=== PATIENT | male | born 1965 | race Caucasian/White ===

== ENCOUNTER 2016-06-22 09:49 | Inpatient (IN) | payer MEDICAID ==
[~2016-06-22] VITALS: Ht 190.5 cm; Wt 112.7 kg
[2016-06-22] VITALS (25 sets, daily range): BP systolic 99–170; BP diastolic 51–109; BMI 31.1
[~2016-06-22 09:49] MED LIST: ALDACTONE25 MG PO; BAYER CHEWABLE81 MG PO; COREG12.5 MG; COREG12.5 MG PO; COZAAR25 MG PO; LASIX80 MG PO; PROVENTIL HFA6.7 GM INH; SYMBICORT 16010.2 GM INH
[2016-06-22 10:27] LABS: BASOPHILS 0.7 % (0.0-2.0); EOSINOPHILS 2.8 % (0-7); HEMATOCRIT 46.1 % (42.0-54.0); HEMOGLOBIN 14.7 g/dL (13.5-17.5); IMMATURE GRANULOCYTES 0.6 % (0-5); LYMPHOCYTES 17.4 % (15-50); MCH 28.5 pg (26.0-34.0); MCHC 31.9 g/dL (31.0-37.0); MCV 89.3 fL (80.0-100.0); MEAN PLATELET VOLUME 10.8 fL (7.4-10.4); MONOCYTES 5.3 % (2-11); NEUTROPHILS 73.2 % (40-80); RBC 5.16 10x6/uL (4.20-6.10); RDW 15.5 % (11.5-14.5)
[2016-06-22 10:36] LABS: ALBUMIN 3.4 g/dL (3.4-5.0); ALKALINE PHOSPHATASE 85 U/L (46-116); ALT (SGPT) 36 U/L (10-68); CALC OSMOLALITY 277 mosm/kg (275-300); CALCIUM 8.8 mg/dL (8.5-10.1); CARBON DIOXIDE 23.3 mmol/L (21.0-32.0); CHLORIDE - SERUM 103 mmol/L (98-107); CREATININE - SERUM 1.4 mg/dL (0.6-1.3); GLUCOSE 127 mg/dL (74-106); PROTEIN - SERUM 7.5 g/dL (6.4-8.2); SODIUM 136 mmol/L (136-145); UREA NITROGEN 24 mg/dL (7-18); eGFR NON AFRICAN AMERICAN 56 mL/min (90-120)
[2016-06-22 10:37] LABS: PLATELET COUNT 249 10x3/uL (130-400)
[2016-06-22 10:56] LABS: CHOL - HDL RATIO 5.7 ratio (2.3-4.9); CHOLESTEROL, TOTAL 187 mg/dL (0-200); CKMB 2.8 U/L (0.0-3.6); CREATINE KINASE 113 UL (21-232); HDL CHOLESTEROL 33 mg/dL (32-96); LDL CHOLESTEROL 97 mg/dL (0-100); LDL-HDL RATIO 2.9 ratio (1.5-3.5); TRIGLYCERIDE 288 mg/dL (30-200)
[2016-06-22 10:57] LABS: TROPONIN-I 0.074 ng/mL (0.000-0.060)
--- NOTE | 2016-06-22 13:28 | NUR ---
PATIENT ARRIVED TO ROOM VIA WHEELCHAIR. ADMISSION STARTED.
[2016-06-22] MEDS ORDERED: ACCUPRIL10 MG PO (13:38)
--- NOTE | 2016-06-22 13:55 | NUR ---
SPOKE WITH DR VERGARA VIA PHONE. OK FOR PATIENT TO HAVE REGULAR DIET AND NEW MED ORDERS RECEIVED.
--- NOTE | 2016-06-22 16:46 | NUR ---
PATIENT HAD A NELY HORSE IN HIS LEFT HAND THUMB AND POINTER FINGER AND THEN HIS LEFT PINKIE TOE THAT LASTED LESS THAN 2 MINUTES.
--- NOTE | 2016-06-22 17:06 | NUR ---
PATIENT HAS HAD ANOTHER EPISODE OF NELY HORSES ON LEFT SIDE OF BODY, UPPER AND LOWER EXTREMITIES. CALL PLACED TO DR VERGARA THROUGH THE ANSWERING SERVICE.
--- NOTE | 2016-06-22 17:09 | NUR ---
SPOKE WITH DR VERGARA, NEW ORDERS RECEIVED AND ENTERED.
--- NOTE | 2016-06-22 17:24 | NUR ---
PATIENT WANTING SOMETHING FOR PAIN. DR VERGARA PAGED AGAIN THROUGH THE SERVICE.
--- NOTE | 2016-06-22 17:34 | NUR ---
SPOKE WITH DR VERGARA, NEW ORDERS RECEIVED AND ENTERED. WILL GIVE THE PATIENT A NORCO SOON IT IS VERIFIED BY PHARMACY.
--- NOTE | 2016-06-22 18:01 | NUR ---
PATIENTS MOM HERE. NO QUESTIONS AT THIS TIME.
--- NOTE | 2016-06-22 19:15 | NUR ---
REPORT RECEIVED AND CARE ASSUMED. INITIAL SHIFT ASSESSMENT COMPLETED. PT AAOX4 SPEECH CLEAR. ADMITS PAIN AT A 5 ON SCALE OF 0-10 STAING "IT'S FINE REALLY JUST UNCOMFORTABLE" PT IS REFERRING TO THE MUSCLE CRAMPS HE HAD C/O EARLIER AND DID RECEIVE K+ AND MAGNESIUM FOR ELECTROLTE DEPLETION. STATES THEY ARE "BETTER." PT WEARING O2 AT 2L PER N/C VSS. PIV 20G TO L FA WNL AND WAS SITED TODAY. IVF PER FLOWSHEET. PT IS VOIDING CLEAR YELLOW URINE USING URINAL. URINE PRESENT. PT REFUSES SCD'S AND NOTE PT IS MOVING FREQUENTLY AND FREELY IN BED AND STANDING TO VOID. PT BEING MONITORED PER STANDARD ICU PROTOCOL WITH ALL ALARMS SET AND VERIFIED.
--- NOTE | 2016-06-22 21:00 | NUR ---
NO VISITORS AT THIS TIME. PT TALKING ON CELL PHONE DENIES NEEDS AT THIS TIME
--- NOTE | 2016-06-22 23:00 | NUR ---
SHIFT REASSESSMENT COMPLETED. NO SIGNIFICANT CHANGES. PT CONTINUES TO HAVE SOME INTERMITTENT CHRONIC PAIN/CRAMPING. GIVEN WARM BLANKET AND ENCOURAGED TO WALK IN ROOM. PT STATED HE FELT BETTER AND RETURNED TO BED
[2016-06-23] VITALS (23 sets, daily range): BP systolic 98–133; BP diastolic 40–80; Ht 190.5 cm; Wt 112.7 kg
--- NOTE | 2016-06-23 01:00 | NUR ---
PT SLEEPING AT THIS TIME. RESP REG AND NONLABORED.
--- NOTE | 2016-06-23 03:00 | NUR ---
SHIFT REASSESSMENT COMPLETED. PT CONTINUES TO HAVE INTERMITTENT CRAMPING AT TIMES. NO EKG ABNORMALITIES.
[2016-06-23 04:39] LABS: ALBUMIN 3.5 g/dL (3.4-5.0); BILIRUBIN - TOTAL 1.39 mg/dL (0.2-1.3); CALCIUM 8.1 mg/dL (8.5-10.1); CREATININE - SERUM 1.4 mg/dL (0.6-1.3); MAGNESIUM - SERUM 2.3 mg/dL (1.8-2.4); POTASSIUM - SERUM 3.8 mmol/L (3.5-5.1); PROTEIN - SERUM 7.4 g/dL (6.4-8.2)
[2016-06-23 04:41] LABS: ANION GAP 10.9 mmol/L (8-16); CARBON DIOXIDE 30.9 mmol/L (21.0-32.0)
--- NOTE | 2016-06-23 04:54 | NUR ---
LABS REVIEWED. PT RESTING QUIETLY. HAS SLEPT MOST OF THE NIGHT
--- NOTE | 2016-06-23 07:00 | NUR ---
ASSESSMENT PER FLOW SHEET. VOICES NO CO AT TIME. SR UP X2.
--- NOTE | 2016-06-23 08:10 | NUR ---
REC'D CARE OF PT. A&O X3.
--- NOTE | 2016-06-23 09:51 | NUR ---
C/O "HEARTBURN". ORDERS REC'D FROM DR. STANTON FOR PRYLOSEC 20MG QD.
--- NOTE | 2016-06-23 10:25 | NUR ---
"HEART BURN IS BETTER"
--- NOTE | 2016-06-23 10:40 | NUR ---
REPOSITIONS SELF IN BED
--- NOTE | 2016-06-23 11:36 | NUR ---
LUNCH TRAY SERVED. DENIES OTHER NEEDS. CLWR.CPOC.
--- NOTE | 2016-06-23 12:44 | NUR ---
C/O "NELY HORSES" REQUESTED PAIN PILL. OBLIGING.
--- NOTE | 2016-06-23 14:00 | NUR ---
LEG CRAMPS ARE BETTER.
--- NOTE | 2016-06-23 14:36 | NUR ---
REASSESSMENT COMPLETED PER FLOW SHEET. NO ACUTE CHANGES.CPOC. CLWR.
--- NOTE | 2016-06-23 15:24 | NUR ---
Patient Name: SHON DAO Admission Status: ER Accout number: [id number] Admission Date: 06-22-2016 : 1965 Admission Diagnosis:ACUTE ON CHRONIC SYSTOLIC (CONGESTIVE) HEART FAILURE Attending: EVENS Current LOS: 1 Anticipated DC Date: 06-26-2016 Planned Disposition: Home Primary Insurance: MEDICAID [place] Is the patient Alert and Oriented? Yes * How many steps to enter\exit or inside your home? SIX STEPS INTO HOME WITH RAILING * PCP HAS RECENTLY ESTABLISHED [facility] IN [place] FOR PRIMARY CARE. FIRST APPT. IS 07/11/16 * Pharmacy [facility] [address] * Preadmission Environment Home with Family * ADLs Independent * Equipment Nebulizer * Other Equipment HAS NEBULIZER THAT IS HIS MOTHERS THAT HE USES IF NEEDED. * List name and contact numbers for known caregivers / representatives who currently or will assist patient after discharge: MARY MENENDEZ, MOTHER, * Community resources currently utilized None * Additional services required to return to the preadmission environment? No * Can the patient safely return to the preadmission environment? Yes * Has this patient been hospitalized within the prior 30 days at any hospital? No Discharge Planning Comments: CM MET WITH PATIENT TO ASSESS DC PLAN/NEEDS. PT STATED HE LIVES AT HOME WITH HIS PARENTS AT THIS TIME AND IS INDEPENDENT IN HIS CARE/ADL'S. STATED HE SOMETIMES DRIVES HIMSELF. HIS MOTHER WILL PROVIDE TRANSPORTATION HOME AT DISCHARGE. HE STATED HE HAS NEVER USED HH OR REHAB SERVICES IN THE PAST AND DENIED NEED FOR HH, REHAB SERVICES OR DME AT THIS TIME. HE AMBULATES WITH NO ASSISTANCE. HE STATED HIS HOME IS A SAFE PLACE AND PLANS TO RETURN HOME AT DISCHARGE. CM WILL FOLLOW AND ASSIST NEEDED WITH ANY DC NEEDS AT THEY ARISE. Re Dye Hand: Jojo Bach RN, CM
--- NOTE | 2016-06-23 15:40 | NUR ---
REQUESTD H20. OBLIGED.
--- NOTE | 2016-06-23 16:35 | NUR ---
DINNER TRAY SERVED
--- NOTE | 2016-06-23 19:40 | NUR ---
REPORT RECIEVED. ASSESSMENT COMPELTE PER FLOW SHEET. REFER FOR FINDINGS. VSS. PT GIVEN COKE PER REQUEST. DENIES FURTHER NEEDS. WILL CNOTINUE TO MONITOR.
--- NOTE | 2016-06-23 21:16 | NUR ---
NO VISITORS AT THIS TIME. VSS. DENIES NEEDS. WILL CONTNIUE TO MONITOR.
--- NOTE | 2016-06-23 23:14 | NUR ---
REASSESSMENT COMPLETE PER FLOW SHEET. VSS. NO NEW CHNAGES. WILL CONTINUE TO MONITOR.
[2016-06-24] VITALS (10 sets, daily range): BP systolic 100–135; BP diastolic 54–87
--- NOTE | 2016-06-24 03:24 | NUR ---
REASSESSMENT COMPLETE PER FLOW SHEET. VSS. NO NWE CHNAGES. WILL CONTINUE TO MONITOR.
--- NOTE | 2016-06-24 07:00 | NUR ---
PT AWAKE. ASKING FOR PAIN MEDICATION TO BE BROUGHT IN WITH MORNING MEDICATIONS. COMPLAINS ABOUT THE MONITORING EQUIPMENT, DOES NOT WANT IT ON. IV INFUSING BUMEX AT 0.5MG AND DOBUTAMINE AT 5MCG SET RATE.
--- NOTE | 2016-06-24 08:47 | HP ---
PATIENT: SHON ALBERT MEDICAL RECORD: [id number] ACCOUNT: [id number] LOCATION:[facility].CV01 : 63 ADMISSION DATE: 06/22/16 HISTORY AND PHYSICAL EXAMINATION DIAGNOSES: 1. Congestive heart failure, chronic systolic dysfunction. 2. Cardiomyopathy, nonischemic. 3. Hypertension. HISTORY OF PRESENT ILLNESS: Mr. Albert presents with increasing shortness of breath, dyspnea on exertion, found to be in congestive heart failure. He has a history of cardiomyopathy, ejection fraction in the 25% range. Cardiac catheterization revealing no significant coronary artery disease, this is not ischemic cardiomyopathy. His troponin is elevated; however, this is demand ischemia. Chest x-ray is compatible with pulmonary edema. PHYSICAL EXAMINATION: GENERAL APPEARANCE: Well-nourished, well-developed, appears stated age. Level of distress, comfortable. PSYCHIATRIC: Mental status, alert, normal affect. Orientation, oriented to time, place and person. EYES: Lids and conjunctiva, noninjected. No discharge, no pallor. ENT: Lips, teeth, gums, normal dentition. Oropharynx, no cyanosis, no pallor. NECK: Carotid arteries, bilateral normal upstroke, no bruits, no thrills. JUGULAR VEINS: No jugular venous pressure or distention. CERVICAL LYMPH NODES: Nontender, nonenlarged. THYROID: Not enlarged. Nontender. No nodules. LUNGS: Bibasilar crackles compatible with pulmonary edema. CHEST: Normal curvature. No thoracic deformity. No chest wall tenderness. Percussion, resonant. Auscultation, clear. No wheezes, no rales, no rhonchi. CARDIOVASCULAR: Precordial exam, nondisplaced. No heaves or pericardial thrills. Rate and rhythm, regular. Heart sounds, normal S1, normal S2. No S3, no gallop, no rub. Systolic murmur, not heard. Diastolic murmur, not heard. EXTREMITIES: No cyanosis, no edema. Peripheral pulses, full and equal in all extremities, except as noted. No bruits appreciated. ABDOMEN: Soft, nondistended. Normal aorta. No bruit. Nontender. No masses. Liver, nontender, no hepatomegaly. Spleen, nontender, no splenomegaly. MUSCULOSKELETAL: No joint tenderness. No joint swelling. No erythema. NEUROLOGICAL: Normal gait, normal strength, normal tone. SKIN: Warm and dry. REVIEW OF SYSTEMS: The patient reports easy bruising but reports no swollen glands. The patient reports no fever, no night sweats, no significant weight gain, no significant weight loss. No significant exercise tolerance. The patient reports no dry eyes, no irritation, no vision change. Patient reports no difficulty hearing and no ear pain. Patient reports no frequent nose bleeds or nose and sinus problems. Patient reports on arm pain on exertion. No shortness of breath while lying down. No history of heart murmur. Patient reports no cough, no wheezing or coughing up blood. Patient reports no abdominal pain, no vomiting. Normal appetite. No diarrhea and not vomiting blood. No nausea and no constipation. Patient reports no incontinence. No difficulty urinating. No hematuria. No increased frequency. Patient reports no muscle aches. No weakness, no arthralgias, no back pain. No swelling of the extremities. Patient reports no abnormal mole, no jaundice, no rashes. Reports HISTORY AND PHYSICAL [id number] SHON ALBERT no loss of consciousness. No weakness and no numbness. No seizures, dizziness, or headaches. The patient reports no depression, no sleep disturbance, feeling safe in a relationship and no alcohol abuse. Patient reports on fatigue. Reports no runny nose or sinus pressure. No itching, no hives, and no frequent sneezing. OVERALL IMPRESSION: Chronic systolic dysfunction, decompensated congestive heart failure. At this time, we will admit for Bumex drip and dobutamine drip and we will consider discontinuation of his Cozaar changing to Entresto. TRANSINT:[id number] Voice Confirmation ID: [id number] DOCUMENT ID: [id number] KELSI VERGARA MD at 0847 CC: [id number] DICTATION DATE: 06/22/16 1136 PRESETTER OPERATOR: 06/22/16 1158 ADM IN [place] [id number] [place] [address]
--- NOTE | 2016-06-24 09:19 | NUR ---
Nutrition follow-up: Diet: Regular PO intake 75-100% of meals Labs reviewed wt: 248# PO intake is good at this time. RDN following.
--- NOTE | 2016-06-24 10:00 | NUR ---
PT SITTING UP IN CHAIR AT BEDSIDE. VOICES NO COMPLAINTS. HAS BEEN PROVIDED WITH FRESH WATER AND ICE REQUESTED.
--- NOTE | 2016-06-24 12:00 | NUR ---
DR VERGARA IN TO SEE PATIENT. PT SITTING UP IN CHAIR EATING LUNCH.
--- NOTE | 2016-06-24 12:02 | NUR ---
FOLLOW UP APPOINTMENT MADE TO SEE DR VERGARA ON June AT 10AM. WRITTEN PRESCRIPTION MADE FOR BUMEX, COREG AND ACCUPRIL. COPY MADE FOR CHART.
[2016-06-24] MEDS ORDERED: BUMEX2 MG PO (12:17)
--- NOTE | 2016-06-24 12:32 | NUR ---
DISCHARGE TEACHING PROVIDED. WRITTEN PRESCRIPTION GIVEN. PT INSTRUCTED TO STOP TAKING LASIX. PT RIDE WILL NOT BE HERE UNTIL AFTER 5PM WHEN THEY GET OFF WORK. PT IV HAS BEEN DISCONTINUED. HE IS SITTING IN CHAIR AT BEDSIDE WATCHING TELEVISION AT THIS TIME. CALL LIGHT IN REACH.
--- NOTE | 2016-06-24 13:19 | NUR ---
PT SITTING UP IN CHAIR ON CELL PHONE. VOICES NO NEEDS AT THIS TIME. CALL LIGHT IN REACH.
--- NOTE | 2016-06-24 15:51 | NUR ---
PT HAS VISITOR IN WAITING. VISITING HOURS OVER. PT ATTEMPTED TO GO OUT TO WAITING AREA TO VISIT WITH GUEST. LET HIM KNOW WE COULD NOT MONITOR HIM OUT THERE AND WE COULDN'T LET HIM GO. HE THEN TOLD STAFF THAT THE VISITOR COULD TAKE HIM HOME. DISCHARGE TEACHING HAS ALREADY BEEN DONE. IV ACCESS REMOVED EARLIER. PT HAS BELONGINGS GATHERED. REFUSES WHEELCHAIR AND INSISTS ON WALKING OUT TO AWAITING VEHICLE. PT WALKED OUT WITH RN AT SIDE UNTIL WAS SEATED. PT EXHIBITED NO DISTRESS AND VOICED NO COMPLAINTS.
--- NOTE | 2016-06-28 10:32 | DS ---
PATIENT:SHON ALBERT :63 MEDICAL RECORD: [id number] DISCHARGE SUMMARY ADMISSION DATE: 06/22/16 DISCHARGE DATE: 06/24/16 DISCHARGE DIAGNOSES: 1. Nonischemic cardiomyopathy. 2. Congestive heart failure, chronic systolic dysfunction. 3. Hypertension. HOSPITAL COURSE: Mr. Albert presents with heart failure exacerbation. He has a nonischemic cardiomyopathy. He underwent dobutamine and Bumex drip. He had a good diuresis, heart failure symptomatology cleared. He was discharged home. Continue his medications with the exception of Lasix, changed to p.o. Bumex 2 mg a day. We will follow up with [facility] in 1 month. TRANSINT:[id number] Voice Confirmation ID: [id number] DOCUMENT ID: [id number] KELSI VERGARA MD at 1032 CC: [id number] DICTATION DATE: 06/24/16 1205 MUSIC THERAPIST: 06/25/16 0108 DIS IN 06/24/16 [place] [id number] [place] [id number]
== END 2016-06-24 16:15 | disposition home or self-care (01) | DRG 292 ==
LOC: D.ER 09:49 → D.CVICU 11:37
PROVIDERS: Emergency Medicine; ADMIT Internal Medicine Interventional Cardiology
DX: I11.0 Hypertensive heart disease with heart failure (principal); I24.8 Other forms of acute ischemic heart disease; I50.23 Acute on chronic systolic (congestive) heart failure; I42.9 Cardiomyopathy, unspecified

== ENCOUNTER 2016-11-12 16:32 | Emergency (ER) | payer MEDICAID ==
[2016-06-23 08:55] VITALS: BMI 30.9
[~2016-11-12 16:32] MED LIST changes: +ACCUPRIL10 MG PO; +BUMEX2 MG PO
== END 2016-11-12 19:06 | disposition home or self-care (01) ==
LOC: D.ER 16:32
DX: J44.1 Chronic obstructive pulmonary disease with (acute) exacerbation (principal); I50.9 Heart failure, unspecified; I10 Essential (primary) hypertension; F17.200 Nicotine dependence, unspecified, uncomplicated

== ENCOUNTER 2016-11-16 06:41 | Outpatient (CLI) | payer MEDICAID ==
[~2016-11-16] VITALS: Ht 188 cm; Wt 113.2 kg
--- NOTE | ~2016-11-16 | HEMODYNAMI ---
PATIENT:SHON DAO MEDICAL RECORD: [id number] : 63 LOCATION:[facility] ADMISSION DATE: 11/16/16 Generatedon:11/16/20169:56 Patient name: SHON DAO Patient #: [id number] SSN: [id number] : 1965 Date of study: 11/16/2016 Page: Of Hemodynamic Procedure Report Patient Data Patient Demographics Procedure consent was obtained First Name: SHON Gender: Male Last Name: SYLWIA : 1965 Middle Initial: IVONNE Age: 51 year(s) Patient #: [id number] Race: SSN: [id number] Additional ID: [id number] Contact details Address: [place] [address] State: [place] City: [place] Zip code: [address] Past Medical History Allergies: No known allergies Admission Admission Data Admission Date: 11/16/2016 Admission Time: 6:41 Lab Results Lab Result Date: 11/16/2016 Lab Result Time: 0:00 Biochemistry Name Units Result Min Max BUN mg/dl 35 --(----)-* 7 18 Creatinine mg/dl 1.3 --(---*)-- 0.6 1.3 Troponin l ng/ml 32.292 --(----)-* 0 0.06 CBC Name Units Result Min Max Hemoglobin g/dl 14.2 --(*---)-- 13.5 17.5 Procedure Procedure Types Cath Procedure Diagnostic Procedure LHC LHC w/Coronaries Miscellaneous Procedures Moderate Sedation up to 15 minutes Procedure Description Procedure Date Procedure Date: 11/16/2016 Procedure Start Time: 9:31 Procedure End Time: 9:41 Procedure Staff Name Function Db Crowder MD Performing Physician Katie Ricci RN Nurse Raul Britton RT Monitor Chad Fox RT Scrub Procedure Data Cath Procedure Fluoroscopy Diagnostic fluoroscopy Total fluoroscopy Time: 0.8 time: 0.8 min min Diagnostic fluoroscopy Total fluoroscopy dose: 362 dose: 362 mGy mGy Contrast Material Contrast Material Type Amount (ml) Isovue 300 45 Entry Location Entry Primary Successful Side Size Upsize Upsize Entry Closure Succes sful Closure Location (Fr) 1 (Fr) 2 (Fr) Remarks Device Remarks Femoral Right 5 Fr Exoseal artery Diagnostic catheters Device Type Used For End Catheter Placement Cordis 5Fr Pigtail LV Angiography Catheter (MP) Cordis 5Fr JL 4.0 Left Coronary Catheter (MP) Angiography Cordis 5Fr 3DRC Catheter Right Coronary (MP) Angiography Procedure Complications No complications Procedure Medications Medication Administration Route Dosage Fentanyl I.V. 50 mcg Versed I.V. 1 mg Fentanyl I.V. 50 mcg Versed I.V. 1 mg Fentanyl I.V. 25 mcg Oxygen NC 2 l/min Heparin Flush Bag added to field 2 bags (1000units/500ml NS) Lidocaine 2% added to field 20 Dobutamine I.V. drip 5 mcg/kg/min (500mg/250ml D5W) Hemodynamics Rest HGB: 14.2 (g/dl) Heart Rate: 97 (bpm) Snapshots Pre Cath Intra NCS Post Cath Vital Signs Time Heart Resp SPO2 etCO2 GY5xmdv NIBP (mmHg) Rhythm Pain Status Nalini tion Rate (ipm) (%) (mmHg) (mmHg) Level (bpm) 9:13:20 95 16 100 0 0 146/83(84) NSR 7 (11) , 10(A ) Very intense 9:17:34 96 19 96 0 0 133/105(116) NSR 5 (11) , 10(A ) Very distressing 9:22:33 100 18 99 0 0 Measuring NSR 5 (11) , 10(A ) Very distressing 9:23:22 98 24 95 0 0 121/90(109) NSR 5 (11) , 10(A ) Very distressing 9:27:28 102 19 98 0 0 127/93(108) NSR 0 (11) , No 10(A ) pain 9:31:36 102 15 99 0 0 137/104(117) NSR 0 (11) , No 9(A) pain 9:35:48 100 16 98 0 0 137/102(121) NSR 0 (11) , No 9(A) pain 9:39:58 100 16 96 0 0 116/89(108) NSR 0 (11) , No 9(A) pain 9:45:38 100 15 94 0 0 116/90(107) NSR 0 (11) , No 9(A) pain Medications Time Medication Route Dose Verified Delivered Reason Notes E ffectiveness by by 9:11:08 Oxygen NC 2 l/min Db Katie Per Lakesha Ricci RN physician 9:15:29 Lidocaine 2% added 20ml vial Db Ace used for to Lakesha Crowder MD procedure field 9:15:47 Heparin Flush added 2 bags Db Ace used for Bag to Lakesha Crowder MD procedure (1000units/500ml field NS) 9:16:25 Fentanyl I.V. 50 mcg Db Katie for chest Lakesha Ricci RN pain 9:29:00 Versed I.V. 1 mg Db Katie for Lakesha Ricci RN sedation 9:29:14 Fentanyl I.V. 50 mcg Db Katie for Lakesha Ricci RN sedation 9:31:13 Versed I.V. 1 mg Db Katie for Lakesha Ricci RN sedation 9:31:17 Fentanyl I.V. 25 mcg Db Katie for Lakesha Ricci RN sedation 9:36:28 Dobutamine I.V. 5 Db Katie Per (500mg/250ml drip mcg/kg/min Lakesha Ricci RN physician D5W) Procedure Log Time Note 8:45:26 Raul Pattersonrosa RT(R) sent for patient. Start room use. 8:48:09 ACC Patient presents with Unstable Angina CCS Anginal Class 3--Marked limitation of physical activity, angina occurs with ordinary activity.. 8:48:21 Diagnostic Cath status Urgent 8:52:29 Time tracking: Regular hours 8:52:35 Plan of Care:Hemodynamics will remain stable., Cardiac rhythm will remain stable., Comfort level will be maintained., Respiratory function will remain adequate., Patient/ family verbilizes understanding of procedure., Procedure tolerated without complication., Recovers from procedure without complications.. 9:10:40 Patient received from ED to CCL 1 Alert and oriented. Tansferred to table in Supine position. 9:10:42 Warm blankets applied, and gerber hugger turned on for patient comfort. 9:10:42 Correct patient and procedure confirmed by team. 9:10:43 Signed procedure consent form obtained from patient. 9:10:43 ECG and BP/O2 sat monitors applied to patient. 9:11:08 Oxygen 2 l/min NC was administered by Katie Ricci RN; Per physician; 9:12:11 Vital chart was started 9:15:29 Lidocaine 2% 20ml vial added to field was administered by Db Crowder MD; used for procedure; 9:15:47 Heparin Flush Bag (1000units/500ml NS) 2 bags added to field was administered by Db Crowder MD; used for procedure; 9:16:25 Fentanyl 50 mcg I.V. was administered by Katie Ricci RN; for chest pain; 9:17:28 Baseline sample Acquired. 9:17:30 Rhythm: sinus rhythm 9:17:31 Full Disclosure recording started 9:17:35 H&P Date Dictated: 11/16/2016 Within 30 days and on chart.. 9:17:36 Pre-procedure instructions explained to patient. 9:17:37 Pre-op teaching completed and patient verbalized understanding. 9:17:38 Family in waiting room. 9:17:40 Patient NPO since Midnight. 9:17:46 Patient allergic to No known allergies 9:17:48 Is the patient allergic to Iodine/contrast media? No. 9:18:10 Is patient on blood thinner?Yes 9:18:16 ACC The patient was administered the following blood thiners within the last 24 hours: ACCAspirin, ACCPlavix, ACCHeparin 9:18:18 Patient diabetic? No. 9:18:21 ----Pre-sedation anethsthesia assessment.---- 9:18:24 Previous problem with sedation/anesthesia? No ? 9:18:27 Snore? Yes 9:18:28 Sleep apnea? No 9:18:29 Deviated septum? No 9:18:30 Opens mouth fully? Yes 9:18:32 Sticks out tongue? Yes 9:18:36 Airway obstruction? Yes COPD 9:18:45 Dentures? No LOST TEETH 9:18:50 Pre procedure: right dorsailis pedis pulse 1+ Palpable, but thready & weak; easily obliterated 9:18:54 Patient pain scale 0/10 ?. 9:18:58 Patient pain scale 7/10 CP. 9:19:05 IV patent on arrival in right hand with 0.9% NaCl at 10ml/hr. 9::49 Lab Result : Creatinine 1.3 mg/dl 9::49 Lab Result : BUN 35 mg/dl 9::49 Lab Result : Troponin l 32.292 ng/ml 9::49 Lab Result : Hemoglobin 14.2 g/dl 9::57 Lab results completed and on chart. 9:20:00 Right groin area was prepped with chlora-prep and draped in sterile fashion 9:20:01 Alarms reviewed by R. N. 9:20:02 Sharps counted by scrub and verified by R.N. 9:24:17 Use device set Femoral Dx 9:24:18 Acist Syringe opened to sterile field. 9:24:18 Bag Decanter opened to sterile field. 9:24:19 Medline Cath Pack opened to sterile field. 9:24:19 Terumo 5Fr Coal Center Sheath opened to sterile field. 9:24:20 St Fidel 260cm J .035 wire opened to sterile field. 9:24:21 Acist Hand Control opened to sterile field. 9:24:21 Acist Manifold opened to sterile field. 9:24:22 Diagnostic Infinity 5Fr Multipack catheter opened to sterile field. 9:24:22 Tegaderm 4 x 4 opened to sterile field. 9:24:27 Physician paged 9:27:55 Zero performed for pressure channel P1 9::49 --------ALL STOP TIME OUT------ 9:28:50 Final Timeout: patient, procedure, and site verified with staff and physician. All members of the team are in agreement. 9:28:51 Right groin site verified by team. 9::54 Physical assessment completed. ASA score P 2 - A patient with mild systemic disease as per Db Crowder MD. 9::57 Sedation plan: IV Moderate Sedation Versed, Fentanyl 9:29:00 Versed 1 mg I.V. was administered by Katie Ricci RN; for sedation; 9:29:14 Fentanyl 50 mcg I.V. was administered by Katie Ricci RN; for sedation; 9:31:13 Versed 1 mg I.V. was administered by Katie Ricci RN; for sedation; 9:31:13 Procedure started. 9:31:17 Fentanyl 25 mcg I.V. was administered by Katie Ricci RN; for sedation; 9:31:24 Local anesthetic to right femoral artery with Lidocaine 2% by Db Crowder MD.INITIAL ACCESS ONLY 9:31:31 A 5 Fr sheath was inserted into the Right Femoral artery 9:32:00 A Cordis 5Fr Pigtail Catheter (MP) was advanced over the wire and used for LV Angiography. 9:32:24 LV angiography performed. 9:32:28 Injector settings: Ml/sec: 10, Volume: 20, 9:32:43 EF : 10 % 9:32:50 Catheter removed. 9:32:56 A Cordis 5Fr JL 4.0 Catheter (MP) was advanced over the wire and used for Left Coronary Angiography. 9:33:14 LCA angiography performed. 9:33:32 Procedure type changed to Cath procedure, Diagnostic procedure, LHC, LHC w/Coronaries, Miscellaneous Procedures, Moderate Sedation up to 15 minutes 9:34:27 Catheter removed. 9:34:32 A Cordis 5Fr 3DRC Catheter (MP) was advanced over the wire and used for Right Coronary Angiography. 9:34:35 RCA angiography performed. 9:35:08 Catheter removed. 9:35:16 Contrast amount:Isovue 300 45ml. 9:35:23 Sheath removed intact; hemostasis achieved with Exoseal to the Right Femoral artery. 9:35:26 Procedure ended.(Physican Out) 9:35:38 Fluoroscopy time 00.80 minutes. 9:35:45 Fluoroscopy dose: 362 mGy 9:35:45 Flurop Dose total: 362 9:35:47 Sharps counted by scrub and verified by R.N. 9:35:48 Insertion/operative site no bleeding no hematoma. 9:35:50 Post-op/insertion site Right Femoral artery dressed using a 4 x 4 and Tegaderm. 9:35:53 Post right femoral artery:stable 9:35:54 Post Procedure Pulses reassessed and unchanged 9:35:57 Post procedure: right dorsailis pedis pulse 2+ Normal; easily identifiable; not easily obliterated. 9:36:04 Post procedure rhythm: sinus tachycardia 9:36:06 Post procedure instruction explained to patient.Patient verbalizes understanding. 9:36:18 Cordis 5Fr Exoseal opened to sterile field. 9:36:28 Dobutamine (500mg/250ml D5W) 5 mcg/kg/min I.V. drip was administered by Katie Ricci RN; Per physician; 9:37:18 Procedure and supply charges have been captured, reviewed, submitted and are correct. 9:37:22 Procedure Complication : No complications 9:37:24 Vital chart was stopped 9:37:24 See physician's report for complete and final results. 9:37:27 Report given to PCU. 9:37:30 Patient transfered to PCU with Bed. 9:41:54 Procedure ended. 9:41:54 Full Disclosure recording stopped 9:41:57 End room use (Document Last) Device Usage Item Name Manufacture Quantity Catalog Hospital Part Current Minimal Lo t# / Number Charge Number Stock Stock Serial# Code Acist Acist 1 76940 [id number] 156347 [id number] 20 Syringe Medical [employer] Inc Bag Microtek 1 2002S 977623 53727 252277 5 Decanter Medical Inc. Medline Cardinal 1 [id number] 616796 41187 455388 5 Cath Pack Health Terumo 5Fr Terumo 1 [id number] 655440 018627 785846 [address] St Fidel 1 517356 532106 485093 389114 30 260cm J .035 wire Acist Hand Acist 1 74067 455228 451912 941065 5 Control Medical Systems Inc Acist Acist 1 28629 452340 614566 836559 5 Manifold Medical Systems Inc Diagnostic Cardinal 1 [id number] 876296 11984 426447 30 Infinity Health 5Fr Multipack catheter Tegaderm 4 3M 1 1626W 198710 440170 996022 5 x 4 Cordis 5Fr Cardinal 1 [id number] 5 Pigtail Health Catheter (MP) Cordis 5Fr Cardinal 1 737283 5 JL 4.0 Health Catheter (MP) Cordis 5Fr Cardinal 1 653125 5 3DRC Health Catheter (MP) Cordis 5Fr Cardinal 1 EX500 477396 426033 318218 10 Exoseal Health Signature Audit [place] Stage Time Signature Unsigned Intra-Procedure 11/16/2016 Raul Britton 9:56:04 AM RT(R) Signatures Monitor : Raul Britton RT Signature : Date : Time : [facility] [address] [place] [address]
[2016-11-16 07:16] LABS: BASOPHILS 0.3 % (0-2); EOSINOPHILS 1.6 % (0-7); HEMATOCRIT 46.1 % (42.0-54.0); HEMOGLOBIN 14.2 g/dL (13.5-17.5); IMMATURE GRANULOCYTES 0.8 % (0-5); LYMPHOCYTES 14.4 % (15-50); MCH 28.5 pg (26.0-34.0); MCHC 30.8 g/dL (31.0-37.0); MCV 92.6 fL (80.0-100.0); MEAN PLATELET VOLUME 10.3 fL (7.4-10.4); MONOCYTES 8.6 % (2-11); NEUTROPHILS 74.3 % (40-80); PLATELET COUNT 250 10x3/uL (130-400); RBC 4.98 10x6/uL (4.20-6.10); RDW 16.2 % (11.5-14.5); WBC 11.3 10x3/uL (4.8-10.8)
[2016-11-16 07:47] LABS: ALKALINE PHOSPHATASE 70 U/L (46-116); ALT (SGPT) 52 U/L (10-68); BILIRUBIN - TOTAL 0.74 mg/dL (0.2-1.3); CALC OSMOLALITY 281 mosm/kg (275-300); CALCIUM 8.6 mg/dL (8.5-10.1); CARBON DIOXIDE 25.7 mmol/L (21.0-32.0); CHLORIDE - SERUM 103 mmol/L (98-107); CREATININE - SERUM 1.3 mg/dL (0.6-1.3); GLUCOSE 106 mg/dL (74-106); POTASSIUM - SERUM 4.2 mmol/L (3.5-5.1); SODIUM 137 mmol/L (136-145); UREA NITROGEN 35 mg/dL (7-18); eGFR NON AFRICAN AMERICAN 61 mL/min (90-120)
[2016-11-16 08:03] LABS: CHOL - HDL RATIO 5.1 ratio (2.3-4.9); CHOLESTEROL, TOTAL 138 mg/dL (0-200); CKMB 71.8 U/L (0.0-3.6); CREATINE KINASE 429 UL (21-232); HDL CHOLESTEROL 27 mg/dL (32-96); LDL CHOLESTEROL 80 mg/dL (0-100); PRO BNP 4594 pg/mL (0-125); TRIGLYCERIDE 159 mg/dL (30-200)
[2016-11-16 08:15] LABS: TROPONIN-I 32.292 ng/mL (0.000-0.060)
--- NOTE | 2016-11-16 11:52 | NUR ---
ARRIVED FROM GAS METER READER @ 1000. SLEEPING . SITE IS FREE OF EDEMA AND BLEEDING. VS STABLE. RESP WITH EASE. INSTRUCTED TO LIE FLAT FOR 4 HOURS. MONITOR SHOWS SR @96. DOBUTREX GTT GOING AT 5 MCG. WILL CONTINUE TO MONITOR.
[2016-11-16 12:08] VITALS: BP 144/105
[2016-11-16] MEDS ORDERED: FUROSEMIDE40 MG PO (13:40)
[2016-11-16 16:32] VITALS: BP 130/77
[2016-11-16 19:00] VITALS: BP 121/62
--- NOTE | 2016-11-16 19:35 | NUR ---
SHIFT ASSESSMENT DONE. PATIENT IS COMPLAINING OF PAIN IN BACK BETWEEN SHOULDER BLADES. STATES HE IS HOT AND ASK IF TEMP COULD BE TURNED DOWN. EXPLAINED TO PATIENT THAT HIS PAIN MED WAS NOT DUE FOR ANOTHER HOUR AND HALF.PATIENT VERBALIZES UNDERSTANDING BUT IS VERY RESTLESS AND ANXIOUS AT THIS TIME. ADJUSTED AIR FOR PATIENT.
--- NOTE | 2016-11-16 19:58 | NUR ---
DR. JUNIOR NOTIFIED THAT PATIENT WAS REQUESTING HIS CYMBACORT AND THAT IT WAS NOT ON HIS EMAR. NEW ORDER RECEIVED AND NOTED.
--- NOTE | 2016-11-16 20:10 | NUR ---
PATIENT IS VERY RESTLESS, ANXIOUS, AND HAVING A NON-PRODUCTIVE COUGH. PATIENT STATES THE COUGHING IS WHAT STARTED HIS HEART PAIN AGAIN. PATIENT STATES HE MUST HAVE HIS INHALER. EXPLAINED TO PATIENT THE IMPORTANCE OF CALMING DOWN, THE MED HAS BEEN ORDERED, AND THAT WE WOULD GET IT TO HIM SOON PHARMACY BRINGS IT. PATIENT VERBALIZES UNDERSTANDING.
--- NOTE | 2016-11-16 20:30 | NUR ---
PATIENT IS CALMING DOWN AND NOT COUGHING MUCH.
--- NOTE | 2016-11-16 20:55 | NUR ---
NORCO 10MG GIVEN FOR BACK PAIN. PATIENT IS INFORMED THAT RESPIRATORY WILL BE HERE WITH INHALER SOON. PATIENT IS RESTING BETTER AT THIS TIME. CALL LIGHT WITHIN REACH, AND BED IN LOW POSITION.
--- NOTE | 2016-11-16 21:35 | NUR ---
REASSESSED PAIN MED. PATIENT IS RESTING BETTER WITH EYES CLOSED AROUSES EASILY TO VERBAL STIMULI. CALL LIGHT WITHIN REACH, BED IN LOW POSITION.
[2016-11-17] VITALS (7 sets, daily range): BP systolic 92–134; BP diastolic 56–95; Ht 188 cm; Wt 113.2 kg
--- NOTE | 2016-11-17 00:18 | NUR ---
PATIENT SLEEPING, NO CHANGES IN PAITENT CONDITION AT THIS TIME. CALL LIGHT WITHIN REACH, AND BED IN LOW POSITION.
--- NOTE | 2016-11-17 03:25 | NUR ---
PATIENT AWAKE REQUESTING SOMETHING TO EAT. FOOD GIVEN. PATIENT STATES PAIN IS LESS THAN 5 NOW AND HE FEELS LIKE HE IS BREATHING MUCH BETTER.
--- NOTE | 2016-11-17 06:31 | NUR ---
PATIENT IS SLEEPING WITH NORMAL RESPIRATIONS NOTED. CALL LIGHT WITHIN REACH, AND BED IN LOW POSITION.
--- NOTE | 2016-11-17 07:41 | NUR ---
AM ROUNDING DONE WITH [place]LE COMPLAINING OF BACK PAIN. NIGHT NURSE HAS JUST GIVEN HIM A NORCO ORDERED. ON HEART MONITOR SHOWING SR, HR 80. RIGHT WRIST WITH DOBUTREX INFUSING AT 16.1 CC/HR. ON 4L PER NC. DENIES ANY FURTHER NEEDS. WILL CPOC.
--- NOTE | 2016-11-17 08:38 | PRO ---
PATIENT:SHON DAO MEDICAL RECORD: [id number] : 63 LOCATION:D.M2 D.2120 ADMISSION DATE: 11/16/16 PROCEDURE PERFORMED BY: KELSI VERGARA MD PROCEDURE DATE: 11/16/16 PROCEDURES: 1. Left heart catheterization. 2. Selective coronary angiography. 3. Left ventriculogram. INDICATION: 1. Non-Q wave myocardial infarction. 2. Cardiomyopathy. PROCEDURE IN DETAIL: After informed consent was obtained and after detailed explanation of risks, benefits, as well as alternative therapies, the patient elected to proceed with angiogram. The right femoral area was prepped and draped in a normal sterile fashion. The right femoral artery was cannulated via modified Seldinger technique with placement of 5-St Helenian sheath. All catheters exchanged through this sheath. FINDINGS: The left ventriculogram was performed in standard 30 degree BOONE view, reveals global hypokinesis throughout all segments. Overall ejection fraction much worse at 10%. SELECTIVE CORONARY ANGIOGRAPHY: 1. Left main, left anterior descending, left circumflex, and right coronary artery are all smooth-walled vessels with no angiographic evidence of coronary artery disease. OVERALL IMPRESSION: 1. No angiographic evidence of coronary artery disease. 2. 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 3. Supportive care for the cardiomyopathy. KELSI VERGARA MD at 0838 CC: [id number] DICTATION DATE: 11/16/162254 LIVESTOCK BUYER: JDORY 11/16/162254 [facility] [address] [place] [address]
--- NOTE | 2016-11-17 10:45 | NUR ---
DOBUTREX DRIP DECREASED TO 8 CC/HR. I TALKED THIS OVER WITH TYLER SALINAS RN CHARGE PATIENT IS TO BE DISCHARGED.
--- NOTE | 2016-11-17 12:55 | NUR ---
DENIES NEEDS AT PRESENT TIME.
--- NOTE | 2016-11-17 14:47 | NUR ---
1445-COMPLAINTS OF PAIN TO BACK 11/07. ALSO, I TALKED TO YESSY SALVADOR RN AND LOWERED THE DOBUTREX TO 4 CC/HR.
--- NOTE | 2016-11-17 14:52 | NUR ---
O2 DECREASED TO 3L PER NC. WILL MONITOR.
--- NOTE | 2016-11-17 15:19 | NUR ---
O2 SAT ON 3L IS 98%. O2 LOWERED TO 2L PER NC, WILL CPOC.
--- NOTE | 2016-11-17 17:18 | NUR ---
ON 2L PER NC, SATS ARE 98%. PATIENT STATES THAT HE "CAN'T BREATHE". HE IS COUGHING QUITE A BIT. WILL CONTINUE TO FOLLOW. TYLER SALINAS RN CHARGE IS NOTIFIED THAT PATIENT MAY NOT BE GOING HOME TONIGHT PER DISCHARGED.
--- NOTE | 2016-11-17 20:16 | NUR ---
RESUMED CARE OF PT, LYING IN BED RESPIRATIONS EVEN AND UNLABORED ON 2LPM VIA NC. 75 SR ON TELEMETRY. RIGHT WRIST INFUSING DOBUTAMINE @ 4ML/HR. CALL LIGHT IN REACH. SEE NURSE ASSESSMENT. WILL CONTINUE TO MONITOR.
[2016-11-18] VITALS: BP 95/57
--- NOTE | 2016-11-18 04:52 | NUR ---
CALL BOX WIRER AT BEDSIDE TO OBTAIN VITALS, CALL LIGHT IN REACH. WILL CONTINUE WITH PLAN OF CARE.
--- NOTE | 2016-11-18 08:00 | NUR ---
BREAKFAST SERVED PT AAOX4 RESP UNLABORED RATE19 O2 SAT 98% ON 2 LPM NC NAD NOTED EXPLAINED TO PT DR VERGARA DISCHARGED HIM YESTERDAY AND HE NEEDS TO MAKE ARRANGEMENTS FOR TRANSPORTATION PT STATES I AM SOB AND IF I GO HOME I WILL COME RIGHT BACK TO THE ER
[2016-11-18 08:07] VITALS: BP 106/69
[2016-11-18 12:06] VITALS: BP 100/62
--- NOTE | 2016-11-18 12:35 | NUR ---
OXYGEN SATURATION ON ROOM AIR IN RESTING STATE IS 88%
[2016-11-18 14:44] VITALS: BP 114/57
--- NOTE | 2016-11-18 15:00 | NUR ---
PT REQUEST SCRIPT FOR PAIN MEDS UNABLE TO TALK TO DR VERGARA EXPLAINED TO PT AND THAT NARCOTICS HAD TO BE A WRITTEN SCRIPT PT SAID FORGET IT
--- NOTE | 2016-11-18 15:15 | NUR ---
PER ORDERS, ABG'S WERE OBTAINED TO SEE IF PATIENT QUALIFIES FOR HOME AND PORTABLE OXYGEN AND HOME OXYGEN. PER PATIENTS CHOICE, INFORMATION WAS SENT TO DIONNA AT [facility]. WILL AWAIT TO SEE IF QUALIFIES.
--- NOTE | 2016-11-18 15:44 | NUR ---
PER ORDERS, ABG'S WERE OBTAINED TO SEE IF PATIENT QUALIFIES FOR HOME AND PORTABLE OXYGEN AND HOME OXYGEN. PER PATIENTS CHOICE, INFORMATION WAS SENT TO DIONNA AT [facility]. WILL AWAIT TO SEE IF QUALIFIES.
--- NOTE | 2016-11-18 15:50 | NUR ---
REVIEWED DISCHARGE INSTRUCTIONS WITH PT STATES UNDERSTANDING COPY GIVEN TO PT SALINE LOCK DCD TO RT HAND WITH IV CATHETER INTACT SITE FREE OF REDNESS OR EDEMA PT DISCHARGED HOME IN STABLE CONDITION WITH ALL PERSONAL BELONGS VIA W/C
--- NOTE | 2016-11-23 13:54 | CN ---
PATIENT NAME:SHON DAO MEDICAL RECORD: [id number] : 63 LOCATION:D.CAT ADMIT DATE: ACCOUNT: [id number] CONSULTING PHYSICIAN: KELSI VERGARA MD REFERRING PHYSICIAN: KELSI VERGARA MD CARDIOLOGY CONSULT PROBLEM LIST: 1. Shortness of breath. 2. Dyspnea on exertion. 3. Cardiomyopathy, chronic systolic dysfunction, nonischemic. HISTORY OF PRESENT ILLNESS: This is a gentleman who presented with congestive heart failure symptomatology in January. He underwent cardiac catheterization revealing a dilated cardiomyopathy with ejection fraction in the 20-25% range but no significant disease. He now has had increasing shortness of breath and dyspnea on exertion. His troponin is 30. His electrocardiogram is with nonspecific ST-T abnormalities. PHYSICAL EXAMINATION: HEAD, EYES, EARS, NOSE, AND THROAT: Benign. NECK: Supple. No jugular venous distention. Carotid upstroke plus two bilaterally without bruits. LUNGS: Bibasilar crackles compatible with pulmonary edema. HEART: Regular. Normal S1, normal S2. No S3, no S4. No murmurs. BONES, JOINTS, EXTREMITIES: No clubbing, cyanosis, or edema. OVERALL IMPRESSION: Cardiomyopathy, nonischemic in the past, but with a troponin of 30 cannot ignore this. Will proceed with coronary angiography. Further care depends upon the findings of the angiography. KELSI VERGARA MD at 1354 CC: [id number] DICTATION DATE: 11/16/162310 GRINDING ROOM INSPECTOR: KO 11/16/162310 DEP CLI 11/18/16 [place] [id number] [place] [id number]
--- NOTE | 2016-11-23 13:54 | DS ---
PATIENT:SHON DAO :63 MEDICAL RECORD: [id number] DISCHARGE SUMMARY ADMISSION DATE: 11/16/16 DISCHARGE DATE: 11/18/16 PROBLEM LIST: 1. Nonischemic cardiomyopathy. 2. Congestive heart failure, chronic systolic dysfunction. HOSPITAL COURSE: This is a gentleman with a nonischemic cardiomyopathy who presents with shortness of breath. He was found to have worsening of his cardiomyopathy. He underwent dobutamine therapy along with intravenous Bumex. Cleared his heart failure symptomatology. PLAN: He will be referred to [facility]. KELSI VERGARA MD at 1354 CC: [id number] DICTATION DATE: 11/17/162253 HASH SLINGER: KO 11/17/162253 ROSY LAZARO 11/18/16 [id number] [place] [address]
== END 2016-11-18 18:00 | disposition home or self-care (01) ==
LOC: D.ER 06:41 → D.CATH 06:41 → D.M2 06:41 → EDSTATUS 09:20 → D.M2 10:05 → D.SDCHOLD 14:17 → D.CATH 11-18 18:00
PROVIDERS: Family Medicine
DX: I50.22 Chronic systolic (congestive) heart failure (principal); R94.31 Abnormal electrocardiogram [ECG] [EKG]; I42.8 Other cardiomyopathies; I11.0 Hypertensive heart disease with heart failure; Z01.812 Encounter for preprocedural laboratory examination; R06.02 Shortness of breath

== ENCOUNTER 2017-12-25 21:35 | Inpatient (IN) | payer MEDICAID ==
[~2017-12-25] VITALS: Ht 188 cm; Wt 106.5 kg
[~2017-12-25 21:35] MED LIST changes: +FUROSEMIDE40 MG PO
[2017-12-25] MEDS ORDERED: K-TAB10 MEQ PO (21:42)
[2017-12-25] MEDS ORDERED: ASPIRIN325 MG PO (21:42)
[2017-12-25] MEDS ORDERED: GAVISCON E1 TAB.CHEW (21:43)
[2017-12-25] MEDS ORDERED: NORCO 7.5/325 T1 TA1 (21:43)
[2017-12-25 22:42] LABS: BASOPHILS 0.2 % (0-2); EOSINOPHILS 5.3 % (0-7); HEMATOCRIT 49.3 % (42.0-54.0); HEMOGLOBIN 16.8 g/dL (13.5-17.5); IMMATURE GRANULOCYTES 0.6 % (0-5); LYMPHOCYTES 15.8 % (15-50); MCH 31.1 pg (26.0-34.0); MCHC 34.1 g/dL (31.0-37.0); MCV 91.1 fL (80.0-100.0); MEAN PLATELET VOLUME 10.4 fL (7.4-10.4); MONOCYTES 9.7 % (2-11); NEUTROPHILS 68.4 % (40-80); PLATELET COUNT 238 10x3/uL (130-400); RBC 5.41 10x6/uL (4.20-6.10); RDW 13.2 % (11.5-14.5); WBC 15.2 10x3/uL (4.8-10.8)
[2017-12-25 23:04] VITALS: BP 111/67
[2017-12-25 23:10] LABS: ALBUMIN 3.5 g/dL (3.4-5.0); ALKALINE PHOSPHATASE 75 U/L (46-116); ALT (SGPT) 33 U/L (10-68); BILIRUBIN - TOTAL 0.77 mg/dL (0.2-1.3); CALC OSMOLALITY 285 mosm/kg (275-300); CALCIUM 9.1 mg/dL (8.5-10.1); CARBON DIOXIDE 31.8 mmol/L (21.0-32.0); CHLORIDE - SERUM 101 mmol/L (98-107); CKMB 1.6 U/L (0.0-3.6); CREATINE KINASE 49 UL (21-232); CREATININE - SERUM 1.6 mg/dL (0.6-1.3); GLUCOSE 93 mg/dL (74-106); POTASSIUM - SERUM 3.4 mmol/L (3.5-5.1); PROTEIN - SERUM 7.6 g/dL (6.4-8.2); SODIUM 138 mmol/L (136-145); TROPONIN-I 0.044 ng/mL (0.000-0.060); UREA NITROGEN 40 mg/dL (7-18); eGFR NON AFRICAN AMERICAN 48 mL/min (90-120)
[2017-12-26] VITALS (7 sets, daily range): BP systolic 107–140; BP diastolic 56–96; Ht 188 cm; Wt 106.5 kg
[2017-12-26 00:23] LABS: APPEARANCE CLEAR (CLEAR); BILIRUBIN NEGATIVE (NEGATIVE); COLOR YELLOW (YELLOW); GLUCOSE NEGATIVE (NEGATIVE); KETONE NEGATIVE (NEGATIVE); NITRITE NEGATIVE (NEGATIVE); PROTEIN TRACE mg/dL (NEGATIVE); UROBILINOGEN NORMAL (NORMAL)
[2017-12-26 00:24] LABS: BACTERIA FEW /hpf (NONE SEEN); EPITHELIAL CELLS 0-5 /hpf (0-5); RED CELLS - URINE 0-5 /hpf (0-5); WHITE CELLS - URINE 0-5 /hpf (0-5)
[2017-12-26 01:54] LABS: CKMB 1.4 U/L (0.0-3.6); CREATINE KINASE 41 UL (21-232); TROPONIN-I 0.047 ng/mL (0.000-0.060)
[2017-12-26 07:52] LABS: CKMB 1.6 U/L (0.0-3.6); CREATINE KINASE 41 UL (21-232); TROPONIN-I 0.056 ng/mL (0.000-0.060)
[2017-12-26 13:59] LABS: CKMB 2.3 U/L (0.0-3.6); CREATINE KINASE 46 UL (21-232); TROPONIN-I 0.042 ng/mL (0.000-0.060)
[2017-12-26 14:27] LABS: ANION GAP 7.5 mmol/L (8-16); CALCIUM 8.3 mg/dL (8.5-10.1); CARBON DIOXIDE 31.6 mmol/L (21.0-32.0); CREATININE - SERUM 1.4 mg/dL (0.6-1.3); MAGNESIUM - SERUM 1.5 mg/dL (1.8-2.4); POTASSIUM - SERUM 3.1 mmol/L (3.5-5.1)
[2017-12-26 14:31] LABS: BASOPHILS 0.4 % (0-2); EOSINOPHILS 6.7 % (0-7); HEMATOCRIT 44.1 % (42.0-54.0); HEMOGLOBIN 14.7 g/dL (13.5-17.5); IMMATURE GRANULOCYTES 0.5 % (0-5); LYMPHOCYTES 18.5 % (15-50); MCH 30.8 pg (26.0-34.0); MCHC 33.3 g/dL (31.0-37.0); MCV 92.3 fL (80.0-100.0); MEAN PLATELET VOLUME 11.6 fL (7.4-10.4); MONOCYTES 10.6 % (2-11); NEUTROPHILS 63.3 % (40-80); PLATELET COUNT 198 10x3/uL (130-400); RBC 4.78 10x6/uL (4.20-6.10); RDW 13.3 % (11.5-14.5)
[2017-12-26] MEDS ORDERED: ENTRESTO 24 MG1 EACH PO (16:40)
[2017-12-26] MEDS ORDERED: ATIVAN0.5 MG PO (16:41)
[2017-12-27] VITALS: BP 120/60
[2017-12-27 04:00] VITALS: BP 101/47
[2017-12-27 05:27] LABS: BASOPHILS 0.2 % (0-2); EOSINOPHILS 7.1 % (0-7); HEMATOCRIT 42.7 % (42.0-54.0); HEMOGLOBIN 14.1 g/dL (13.5-17.5); IMMATURE GRANULOCYTES 0.3 % (0-5); LYMPHOCYTES 13.1 % (15-50); MCH 30.1 pg (26.0-34.0); MEAN PLATELET VOLUME 10.6 fL (7.4-10.4); MONOCYTES 8.7 % (2-11); NEUTROPHILS 70.6 % (40-80); PLATELET COUNT 186 10x3/uL (130-400); RBC 4.69 10x6/uL (4.20-6.10); RDW 13.3 % (11.5-14.5); WBC 11.5 10x3/uL (4.8-10.8)
[2017-12-27 05:42] LABS: ANION GAP 10.5 mmol/L (8-16); CALCIUM 8.2 mg/dL (8.5-10.1); CARBON DIOXIDE 29.7 mmol/L (21.0-32.0); CREATININE - SERUM 1.3 mg/dL (0.6-1.3); POTASSIUM - SERUM 3.2 mmol/L (3.5-5.1)
[2017-12-27 07:36] VITALS: BP 108/48
[2017-12-27 11:30] VITALS: BP 108/72
[2017-12-27 12:39] LABS: MAGNESIUM - SERUM 1.5 mg/dL (1.8-2.4)
[2017-12-27 12:41] LABS: POTASSIUM - SERUM 3.8 mmol/L (3.5-5.1)
[2017-12-27] MEDS ORDERED: CORDARONE200 MG PO (13:49)
== END 2017-12-27 18:38 | disposition home or self-care (01) | DRG 89 ==
LOC: D.ER 21:35 → D.M2 12-26 01:16 → OBSVTIME 12-26 01:16 → D.M2 12-26 01:16
PROVIDERS: Family Medicine; Internal Medicine Nephrology
DX: S06.0X9A Concussion with loss of consciousness of unspecified duration, initial encounter (principal); N17.9 Acute kidney failure, unspecified; I42.9 Cardiomyopathy, unspecified; R55 Syncope and collapse; W18.30XA Fall on same level, unspecified, initial encounter; E87.6 Hypokalemia; Z95.810 Presence of automatic (implantable) cardiac defibrillator; I11.0 Hypertensive heart disease with heart failure; I50.9 Heart failure, unspecified; K21.9 Gastro-esophageal reflux disease without esophagitis; F32.9 Major depressive disorder, single episode, unspecified; Z87.891 Personal history of nicotine dependence; I34.0 Nonrheumatic mitral (valve) insufficiency; J44.9 Chronic obstructive pulmonary disease, unspecified